=== PATIENT | male | born 1970 | race Caucasian/White ===

== ENCOUNTER 2020-05-17 18:06 | Emergency (ER) | payer MEDICARE, MEDICAID ==
[2020-05-17] MEDS ORDERED: LORazepam 2 MG/ML SDV IVPUSH ONE (19:12)
[2020-05-17] MEDS ORDERED: HYDROmorphone 0.5 MG/0.5 ML Syringe IVPUSH ONE ×2 (19:12→20:14)
[2020-05-17] MEDS ORDERED: Ketorolac 30 MG/ML SDV IVPUSH ONE (19:12)
[2020-05-17] MEDS ORDERED: Sodium Chloride 0.9% 10 ML Syringe FLUSH PRN (19:13)
[2020-05-17] MEDS ORDERED: Acetaminophen/HYDROcodone 325-5 MG Tab PO ONE (20:14)
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
[2020-05-17] MEDS ORDERED: Alum Hydrox/Mag Hydrox/Simeth 30 ML, Lidocaine 2% 15 ML PO ONE ×2 (21:24)
[2020-05-17] MEDS ORDERED: Aluminum Hydroxide/Magnesium Hydroxide/Simethicone Susp 30 ML Cup ONE (21:30)
--- NOTE | 2020-05-18 07:06 | CR ---
Lumbar spine: AP and lateral views of the lumbar spine were obtained. Comparison: No previous lumbar spine imaging. Transpedicle screws and intervertebral disc fixation noted at L3-4. Intervertebral disc fixation is seen at L4-5 and within L5-S1. Diffuse disc space narrowing is noted. Diffuse anterior osteophytes are seen. Diffuse posterior ridging is seen. Vertebral body heights are maintained. Pedicles are intact. Previous laminectomy is noted within L3-L5. No abnormal subluxation is seen. Surgical clips are noted from prior cholecystectomy. Sacroiliac joints are within normal limits. Impression: 1. Prior surgery and diffuse degenerative change. 2. Nothing acute is appreciated on 2 view lumbar spine study. Diagnostic code #2 This report was dictated in MDT
== END 2020-05-17 21:42 | disposition home or self-care (01) ==
LOC: JD.ED 18:06
DX: M54.41 Lumbago with sciatica, right side (principal); G89.29 Other chronic pain; F17.210 Nicotine dependence, cigarettes, uncomplicated
CPT/HCPCS: 72100; 96374; 96375; 96376; 99283; A9270; J1170; J1885; J2060

== ENCOUNTER 2021-07-28 17:39 | Emergency (ER) | payer MEDICARE ==
[2021-07-28] MEDS ORDERED: HYDROmorphone 0.5 MG/0.5 ML Syringe IVPUSH ONE (18:21)
[2021-07-28] MEDS ORDERED: Sodium Chloride 0.9% 1,000 ML IV STA (18:21)
[2021-07-28] MEDS ORDERED: Famotidine 20 MG/2 ML SDV IVPUSH ONE (18:26)
[2021-07-28] MEDS ORDERED: Pantoprazole 40 MG Vial IVPUSH ONE ×2 (18:26)
[2021-07-28] MEDS ORDERED: Famotidine 20 MG Tab PO ONE (18:27)
[2021-07-28] MEDS: Sodium Chloride 0.9% 10 ML Syringe FLUSH PRN ×2 (18:59→20:08)
[2021-07-28] MEDS ORDERED: Iopamidol 612 MG/ML 50 ML SDV IVPUSH ONE (19:57)
[2021-07-28] MEDS ORDERED: Iopamidol 612 MG/ML 100 ML Bottle IVPUSH ONE (19:57)
[2021-07-28] MEDS ORDERED: Sodium Chloride 0.9% 10 ML SDV FLUSH ONE (19:57)
[2021-07-28] MEDS ORDERED: Diatrizoate Meglumine/Diatrizoate Sodium 37% 120 ML Bottle PO ONE (19:57)
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
--- NOTE | 2021-07-29 07:32 | CT ---
CT abdomen and pelvis Technique: Multiple axial sections were obtained from above the dome of the diaphragm inferiorly to the pubic symphysis. Intravenous and oral contrast was utilized. Reconstructed coronal and sagittal images were obtained. Delayed images were also obtained through the bladder. Findings: Visualized lung bases shows nothing acute. Liver contains no focal parenchymal abnormality. Surgical clips are noted from prior cholecystectomy. Adrenal glands show no nodule. Pancreas is within normal limits. Kidneys show symmetric contrast enhancement with no hydronephrosis or mass. Abdominal aorta shows no aneurysm. No retroperitoneal adenopathy or mesenteric abnormalities are seen. Appendix is seen which is normal. Urine is noted within the bladder which is mildly dilated. No free fluid or inflammatory change is appreciated. Slight increased stool is noted within the colon. Delayed images show contrast within the distal ureters as well as within the bladder. Bone window settings were reviewed which show prior surgery within L3-4 and L4-5. Other scattered degenerative change is noted within the spine. Mild degenerative change is also noted within the sacroiliac joints. Slight degenerative change is noted within both hips. Impression: 1. Mildly dilated bladder with urine. 2. Other chronic findings as noted above. Nothing acute is appreciated. Diagnostic code #2 I agree with preliminary report from [facility], finalized on 07/28/21, 9:38 PM CDT, code 1
== END 2021-07-28 22:44 | disposition home or self-care (01) ==
LOC: JD.ED 17:39
DX: R10.13 Epigastric pain (principal); R33.9 Retention of urine, unspecified; R00.1 Bradycardia, unspecified; K21.9 Gastro-esophageal reflux disease without esophagitis; Z79.899 Other long term (current) drug therapy
CPT/HCPCS: 36415; 51702; 51798; 74177; 80053; 83690; 85025; 86140; 93005; 93225; 93226; 96374; 96375; 99284; A9270; C9113; J1170; J7030; Q9963; Q9967

== ENCOUNTER 2021-09-19 07:43 | Day surgery (SDC) | payer MEDICARE, MEDICAID ==
[~2021-09-19 07:43] MED LIST: Lactated Ringers 1,000 ML IV SCH; Lidocaine 1%/Sod Bicarbonate in NS 8.4% 1 ML Syringe IDERM PRN; Sodium Chloride 0.9% 10 ML Syringe FLUSH PRN
[2021-09-19] MEDS ORDERED: Lidocaine 1% 4 ML ONE (09:02)
[2021-09-19] MEDS ORDERED: Propofol 200 MG/20 ML SDV ONE ×3 (09:02→10:15)
[2021-09-19] MEDS ORDERED: fentaNYL 100 MCG/2 ML SDV ONE (09:02)
[2021-09-19] MEDS ORDERED: Midazolam 1 MG/ML 2 ML SDV ONE (09:02)
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
[2021-09-19] MEDS ORDERED: Lactated Ringers 1,000 ML ONE (10:15)
--- NOTE | 2021-09-19 11:46 | PCM.PRNOTE ---
- Free Text/Narrative Note: Date: 09/19/2021 Procedure: diagnostic esophagogastroduodenoscopy, screening colonoscopy History: medically refractory GERD, polyps on diagnostic colonoscopy 5 years ago Endoscopist: You Mukherjee MD Findings: possible short segment [place] esophagus. Fair prep, One small rectal polyp. Terminal ileum intubated. Detailed Report: The patient was taken to the endoscopy suite and placed in left lateral decubitus position. Timeout was performed and monitored anesthesia care was initiated. A bite-block was placed and the endoscope was inserted into the mouth and advanced to the duodenum with ease. Duodenum appeared normal. A sample biopsy of mucosa was obtained with cold forceps. The scope was withdrawn into the stomach. No ulcers or gross inflammatory changes were noted. A biopsy of antral mucosa was obtained with cold forceps. On retroflexion, no hiatal hernia was appreciated. The scope was withdrawn into the distal esophagus. There appeared to be some short tongues of salmon-colored mucosa extending proximally suggesting short segment Medrano's esophagus. Multiple biopsies of distal esophageal mucosa including the apparent abnormal mucosal were obtained with cold forceps. Air was suctioned from the stomach prior to withdrawal of the scope. The patient tolerated this portion of the procedure well. Next, attention was turned to colonoscopy. The anus appeared normal and digital rectal exam was unremarkable. The colonoscope was inserted and advanced all the way to the cecum. The appendiceal orifice was visualized and the terminal ileum was intubated. Prep was fair. The scope was slowly withdrawn and mucosal surfaces carefully inspected. 1 small rectal polyp grossly consistent with hyperplastic polyp was identified and removed with cold forceps. On retroflexion in the rectum, no other pathology was noted. The patient tolerated the procedure well.
== END 2021-09-19 12:08 | disposition home or self-care (01) ==
LOC: JD.SDS 07:43
PROVIDERS: ATTEND Surgery
DX: R19.7 Diarrhea, unspecified (principal); E75.5 Other lipid storage disorders; K21.9 Gastro-esophageal reflux disease without esophagitis; K31.89 Other diseases of stomach and duodenum; K31.A19 Gastric intestinal metaplasia without dysplasia, unspecified site; E78.00 Pure hypercholesterolemia, unspecified; G47.30 Sleep apnea, unspecified; Z79.899 Other long term (current) drug therapy; Z90.49 Acquired absence of other specified parts of digestive tract; Z98.890 Other specified postprocedural states
CPT/HCPCS: 43239; 45380; 88305; 88313; 88342; J2250; J2704; J3010; J7120; 00813

== ENCOUNTER 2021-10-03 11:15 | Inpatient (IN) | payer MEDICARE, MEDICAID ==
[2021-10-05] MEDS ORDERED: Sodium Chloride 0.9% 10 ML Syringe FLUSH PRN (00:01)
[2021-10-05] MEDS ORDERED: Lidocaine 1%/Sod Bicarbonate in NS 8.4% 1 ML Syringe IDERM PRN (00:01)
[2021-10-05] MEDS ORDERED: Bupivacaine 0.5% 30 ML SDV ONE ×2 (08:26→10:55)
[2021-10-05] MEDS: Lactated Ringers 1,000 ML IV SCH ×2 (08:36→16:04)
[2021-10-05] MEDS ORDERED: Lidocaine 1% 4 ML ONE (09:34)
[2021-10-05] MEDS ORDERED: Propofol 200 MG/20 ML SDV ONE (09:34)
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
[2021-10-05] MEDS ORDERED: Rocuronium 50 MG/5 ML Vial ONE ×2 (09:36→11:43)
[2021-10-05] MEDS ORDERED: Midazolam 1 MG/ML 2 ML SDV ONE (09:37)
[2021-10-05] MEDS ORDERED: fentaNYL 250 MCG/5 ML SDV ONE (09:38)
[2021-10-05] MEDS ORDERED: Vancomycin 1 GM, Vancomycin 500 MG in Sodium Chloride 0.9% 500 ML IV ONE (10:00)
[2021-10-05] MEDS ORDERED: Dexamethasone 4 MG/ML 5 ML MDV ONE (10:14)
[2021-10-05] MEDS ORDERED: fentaNYL 100 MCG/2 ML SDV IVPUSH PRN (10:45)
[2021-10-05] MEDS ORDERED: HYDROmorphone 0.5 MG/0.5 ML Syringe IVPUSH PRN (10:45)
[2021-10-05] MEDS ORDERED: Ondansetron 4 MG/2 ML SDV IVPUSH PRN (10:45)
[2021-10-05] MEDS ORDERED: Lactated Ringers 1,000 ML ONE ×2 (10:48→12:58)
[2021-10-05] MEDS ORDERED: ePHEDrine 50 MG/ML SDV ONE (11:05)
[2021-10-05] MEDS ORDERED: HYDROmorphone 0.5 MG/0.5 ML Syringe ONE ×2 (11:23→12:18)
[2021-10-05] MEDS ORDERED: fentaNYL 100 MCG/2 ML SDV ONE (12:32)
[2021-10-05] MEDS ORDERED: Ondansetron 4 MG/2 ML SDV ONE (13:03)
[2021-10-05] MEDS ORDERED: Ketorolac 30 MG/ML SDV ONE (13:07)
[2021-10-05] MEDS ORDERED: Morphine 2 MG/ML SYRINGE IVPUSH PRN (13:29)
[2021-10-05] MEDS ORDERED: Lactated Ringers 1,000 ML IV SCH (13:30)
[2021-10-05] MEDS ORDERED: Ondansetron 4 MG in Sodium Chloride 0.9% 50 ML IV PRN (13:32)
--- NOTE | 2021-10-05 13:46 | PCM.PRNOTE ---
- Free Text/Narrative Note: Date: 10/05/2021 Operation: laparoscopic Toupet fundoplication with intraoperative flexible esophagogastroscopy Indication: medically refractory acid reflux Surgeon: You Mukherjee MD Findings: Normal anatomy. Gross esophagitis noted on endoscopy. Detailed Report: The patient was taken to the operating room and placed on the table in supine position. Timeout was performed and general endotracheal anesthesia was initiated. A Romero catheter was placed, SCDs were placed and the patient was positioned in low lithotomy. The abdomen was prepped and draped in usual sterile fashion. A Veress needle was placed in the left upper quadrant in order to establish pneumoperitoneum. Once pressure reached 15 mmHg, air was aspirated just superior and lateral on the left side to the umbilicus. A bladed 12 mm trocar was inserted at this site and a 10 mm 30 degree laparoscope was inserted. There was no apparent injury from Veress needle placement and the needle was removed under laparoscopic visualization. Additional ports were placed under vision with the laparoscope. First, a 5 mm port was placed at the left upper quadrant laterally just at the subcostal line at the level of the omentum anteriorly. A 12 mm bladed trocar was inserted at the right upper quadrant along the midclavicular line for the surgeon's right hand. An additional 12 mm trocar was inserted at the right lateral abdomen for placement of the liver retractor. The liver retractor was set up and used to elevate the left lobe of the liver anteriorly exposing the hiatus. Finally, a 5 mm trocar was placed at the right upper quadrant along the midclavicular line for the surgeon's left hand. The patient was positioned in reverse Trendelenburg and the pars flaccida was identified. This was divided using the [place] LigaSure and the right pillar of the leatha was identified. Careful blunt dissection ensued trying to separate the crural muscle from the esophagus, but there was some noted inflammatory change involving the left lobe of the liver and anatomy was not quite clear. Prior to proceeding with dissection, diagnostic es ophagogastroscopy was performed in order to help better delineate the esophagus as it lay relative to the crura. Esophagitis was noted and there was some semisolid gastric contents. The scope was withdrawn after suctioning air from the stomach. Dissection then commenced and the esophagus was apparent. The phrenoesophageal ligament was divided circumferentially working from the medial aspect to the anterior to the lateral aspect. Next, the midportion of the greater curve of the stomach was grasped and omentum was taken off the greater curve using the [place] LigaSure. This dissection was carried up toward the angle of Hiss. Short gastric vessels were divided with the [place] LigaSure. The stomach was reflected medially and some of the posterior attachments were divided using the [place] LigaSure. This line of dissection met up with previous circumferential dissection of the gastroesophageal junction. Next, a grasper was passed posterior to the distal esophagus and a [place] drain was placed circumferentially around the GE junction. This was used for retraction for the remainder of the case. Dissection was carried up into the mediastinum, esophageal attachments well up into the chest. With good mobilization, a few centimeters of esophagus rested within the abdomen tension. There was no significant hiatal hernia noted, and after completing dissection, t he posterior crura were closed reapproximating the hiatus using a single 0 Ethibond suture with pledgets. The initial stitch seemed to impinge on the esophagus slightly, so the suture was removed and redone. The hiatus was closed just around the esophagus without undue tightness. There was some bleeding from the diaphragmatic vessel in the medial aspect of the leatha, and this was controlled with placement of 2 clips. Hemostasis was satisfactory. The fundus of the stomach was passed posteriorly in order to create a Toupet fundoplication. A shoeshine maneuver was performed in order to ensure proper placement of the fundus for fundoplication. The medial aspect of the partial fundoplication was performed first. Three 2-0 Ethibond sutures were used to fix the medial aspect of the fundoplication to the anterior esophagus. Next the lateral aspect was performed in identical fashion using three 2-0 Ethibond sutures. The dissection field was suctioned dry. The patient was then leveled out and 12 mm ports were closed under laparoscopic visualization with 0 Vicryl placed using laparoscopic suture passer. 5 mm ports were removed under laparoscopic visualization and hemostasis was satisfactory. Larger ports were then tied down to the level of fascia and all incisions were closed with running subcuticular Vicryl suture. Wounds were dressed with Dermabond. A total of 30 cc 0.5% Marcaine was used for local anesthetic throughout the case. The patient tolerated the procedure well.
--- NOTE | 2021-10-05 13:58 | PCM.POSTAN ---
POST ANESTHESIA ASSESSMENT - MENTAL STATUS Mental Status: Alert, Oriented - VITAL SIGNS Vital Signs: Last Vital Signs Temp 36.4 C 10/05/21 13:50 Pulse 76 10/05/21 13:50 Resp 10 L 10/05/21 13:50 BP 103/72 10/05/21 13:50 Pulse Ox 94 L 10/05/21 13:50 - RESPIRATORY Respiratory Status: Respiratory Rate WNL, Airway Patent, O2 Saturation Stable, Supplemental Oxygen - CARDIOVASCULAR CV Status: Pulse Rate WNL, Blood Pressure Stable - GASTROINTESTINAL GI Status: No Symptoms - PAIN Pain Score: 0 - POST OP HYDRATION Hydration Status: Adequate & Stable
[2021-10-05] MEDS: Ondansetron 4 MG/2 ML SDV IVPUSH PRN (16:30)
[2021-10-05] MEDS: Tamsulosin 0.4 MG Cap.ER PO SCH (17:03)
[2021-10-05] MEDS: Acetaminophen 325 MG Tab PO SCH ×2 (17:04→21:23)
[2021-10-05] MEDS: Heparin Sodium 5,000 Units/ML Vial SUBCUT SCH ×2 (17:05→21:23)
[2021-10-05] MEDS ORDERED: Benztropine 1 MG Tab PO SCH (21:00)
[2021-10-05] MEDS ORDERED: Haloperidol 5 MG Tab PO SCH (21:00)
[2021-10-05] MEDS ORDERED: Topiramate 25 MG Tab PO SCH (21:00)
[2021-10-05] MEDS ORDERED: risperiDONE 1 MG Tab PO SCH (21:00)
[2021-10-05] MEDS ORDERED: PARoxetine 20 MG Tab PO SCH (21:00)
[2021-10-05] MEDS ORDERED: HYDROXYZINE PAMOATE 25 MG PO SCH (21:00)
[2021-10-05] MEDS: Topiramate 100 MG Tab PO SCH (21:26)
[2021-10-05] MEDS: oxyCODONE 5 MG Tab PO PRN (21:31)
[2021-10-06] MEDS: Ondansetron 4 MG/2 ML SDV IVPUSH PRN ×3 (01:26→14:31)
[2021-10-06] MEDS: oxyCODONE 5 MG Tab PO PRN ×5 (01:26→16:47)
[2021-10-06] MEDS: Acetaminophen 325 MG Tab PO SCH ×2 (05:27→14:32)
[2021-10-06] MEDS: Heparin Sodium 5,000 Units/ML Vial SUBCUT SCH ×2 (05:27→14:31)
--- NOTE | 2021-10-06 08:02 | PCM48HPAN ---
Post Anesthesia Note - EVALUATION WITHIN 48HRS OF ANESTHETIC Vital Signs in Normal Range: Yes Patient Participated in Evaluation: Yes Respiratory Function Stable: Yes Airway Patent: Yes Cardiovascular Function Stable: Yes Hydration Status Stable: Yes Pain Control Satisfactory: Yes (informed nurse that he would like pain meds now) Nausea and Vomiting Control Satisfactory: Yes Mental Status Recovered: Yes Vital Signs: Last Vital Signs Temp 98.6 F 10/06/21 04:54 Pulse 70 10/06/21 04:54 Resp 14 10/06/21 04:54 BP 112/67 10/06/21 04:54 Pulse Ox 92 L 10/06/21 04:54 - COMMENTS/OBSERVATIONS Free Text/Narrative:: pleased with the anesthesia- no complaints- little pain now
[2021-10-06] MEDS: Tamsulosin 0.4 MG Cap.ER PO SCH (08:37)
[2021-10-06] MEDS: Topiramate 100 MG Tab PO SCH (08:38)
[2021-10-06] MEDS ORDERED: risperiDONE 1 MG Tab PO SCH (09:00)
[2021-10-06] MEDS ORDERED: HYDROXYZINE PAMOATE 25 MG PO SCH (09:00)
[2021-10-06] MEDS ORDERED: PARoxetine 20 MG Tab PO SCH (09:00)
[2021-10-06] MEDS: Simethicone 80 MG Tab.Chew PO PRN ×2 (09:28→14:32)
--- NOTE | 2021-10-06 15:08 | PCM.DCSUM1 ---
Discharge Summary - Hospital Course Free Text/Narrative:: Mr. Monge is a 51 yo man with medically refractory reflux disease who underwent elective laparoscopic partial fundoplication on 10/05/2021. The operation was completed without complication and the patient was kept in the hospital for 24 hours following the operation. He was able to tolerate a full liquid diet. Pain was manageable with oral analgesics. The patient has a history of urinary retention, related in part to chronic use of anticholinergic medications. Although bladder scan showed nearly 1 L of urine in the bladder a few hours after chen catheter removal, the patient was able to void several hundred cc's at a time after chen removal. He was deemed fit for discharge to home on POD 1 after reviewing new medications and temporary restricted diet. A paper handout to help with post-fundoplication diet was provided for the patient. Diagnosis: Stroke: No - Discharge Data Discharge Date: 10/06/21 Discharge Disposition: Home, Self-Care 01 Condition: Good - Referral to Home Health Primary Care Physician: Ita Mansfield NP - Patient Summary/Data Operative Procedure(s) Performed: laparoscopic partial fundoplication with intraoperative esophagogastroscopy - Patient Instructions Diet: Full Liquid Diet Activity: As Tolerated, No Lifting Over 10 Pounds Showering/Bathing: May Shower Wound/Incision Care: Keep Operative Site/Wound Site Clean and Dry Notify Provider of: Fever, Increased Pain, Swelling and Redness, Drainage, Nausea and/or Vomiting - Discharge Plan *PRESCRIPTION DRUG MONITORING PROGRAM REVIEWED*: Not Applicable *COPY OF PRESCRIPTION DRUG MONITORING REPORT IN PATIENT CAROLINE: Not Applicable Prescriptions/Med Rec: oxyCODONE 5 mg PO Q4H PRN #20 tab PRN Reason: Pain Promethazine [Phenergan] 12.5 mg PO Q4H PRN #20 tab PRN Reason: Nausea Home Medications: Home Meds Dicyclomine [Bentyl] 20 mg PO Q8H PRN #18 tab 07/28/21 [Rx] Tamsulosin [Tamsulosin 24 Hr] 0.4 mg PO DAILY #30 cap.er 07/28/21 [Rx] risperiDONE [Risperidone] 4 mg PO BEDTIME 07/28/21 [History] Benztropine [Cogentin] 2 mg PO BEDTIME 09/18/21 [History] LORazepam [Lorazepam] 1 mg PO ASDIRECTED PRN 09/18/21 [History] Meloxicam 7.5 mg PO BID 09/18/21 [History] Nicotine [Nicotine Patch] 21 mg TOP ASDIRECTED 09/18/21 [History] Omeprazole 40 mg PO DAILY 09/18/21 [History] Topiramate [Topamax] 100 mg PO BID 09/18/21 [History] haloperidoL [Haldol] 5 mg PO BEDTIME 09/18/21 [History] PARoxetine HCL [Paroxetine HCl] 30 mg PO BEDTIME 10/05/21 [History] buPROPion [buPROPion XL] 150 mg PO DAILY 10/05/21 [History] hydrOXYzine pamoate [Hydroxyzine Pamoate] 25 mg PO DAILY 10/05/21 [History] hydrOXYzine pamoate [Hydroxyzine Pamoate] 100 mg PO BEDTIME 10/05/21 [History] Promethazine [Phenergan] 12.5 mg PO Q4H PRN #20 tab 10/06/21 [Rx] oxyCODONE 5 mg PO Q4H PRN #20 tab 10/06/21 [Rx] Oxygen Therapy Mode: Room Air Patient Handouts: Toupet Fundoplication, Care After, Toupet Fundoplication Referrals: You Mukherjee MD [Physician] - (Follow up post-op appointment on October 20, 2021 at 12:30pm. Please check in for appointment at 12:10pm. ) - Discharge Summary/Plan Comment DC Time >30 min.: Yes Total # of Minutes for Discharge Time: 45 Discharge Summary/Plan Comment: Follow up in clinic in two weeks for postop check. - Patient Data Vitals - Most Recent: Last Vital Signs Temp 37.3 C 10/06/21 14:20 Pulse 76 10/06/21 14:20 Resp 20 10/06/21 14:20 BP 127/86 10/06/21 14:20 Pulse Ox 91 L 10/06/21 14:20 Weight - Most Recent: 100 kg I&O - Last 24 hours: Intake & Output 10/06/21 10/06/21 10/06/21 06:59 14:59 22:59 Intake Total 1400 800 Output Total 1150 300 Balance 250 500 Lab Results - Last 24 hrs: Laboratory Results - last 24 hr 12/03/21 12/03/21 Range/Units 04:41 04:41 WBC 8.82 (4.23-9.07) K/mm3 RBC 4.71 (4.63-6.08) M/mm3 Hgb 13.3 L (13.7-17.5) gm/dl Hct 40.3 (40.1-51.0) % MCV 85.6 (79.0-92.2) fl MCH 28.2 (25.7-32.2) pg MCHC 33.0 (32.2-35.5) g/dl RDW Std Deviation 44.7 H (35.1-43.9) fL Plt Count 199 (163-337) K/mm3 MPV 9.9 (9.4-12.3) fl Neut % (Auto) 76.4 H (34.0-67.9) % Lymph % (Auto) 14.1 L (21.8-53.1) % [place] % (Auto) 9.2 (5.3-12.2) % Eos % (Auto) 0.1 L (0.8-7.0) Baso % (Auto) 0.1 (0.1-1.2) % Neut # (Auto) 6.74 H (1.78-5.38) K/mm3 Lymph # (Auto) 1.24 L (1.32-3.57) K/mm3 [place] # (Auto) 0.81 (0.30-0.82) K/mm3 Eos # (Auto) 0.01 L (0.04-0.54) K/mm3 Baso # (Auto) 0.01 (0.01-0.08) K/mm3 Sodium 144 (136-145) mEq/L Potassium 4.3 (3.5-5.1) mEq/L Chloride 110 H (98-107) mEq/L Carbon Dioxide 20 L (21-32) mEq/L Anion Gap 18.3 H (5-15) BUN 13 (7-18) mg/dL Creatinine 1.2 (0.7-1.3) mg/dL Est Cr Clr Drug Dosing 76.04 mL/min Estimated GFR (MDRD) > 60 (>60) mL/min BUN/Creatinine Ratio 10.8 L (14-18) Glucose 124 H (70-99) mg/dL Calcium 8.2 L (8.5-10.1) mg/dL Med Orders - Current: Current Medications Acetaminophen (Acetaminophen 325 Mg Tab) 975 mg PO Q8H [facility] Last Admin: 10/06/21 14:32 Dose: 975 mg Documented by: Benztropine Mesylate (Benztropine 1 Mg Tab) 2 mg PO BEDTIME [facility] Last Admin: 10/05/21 21:26 Dose: 2 mg Documented by: Haloperidol (Haloperidol 5 Mg Tab) 5 mg PO BEDTIME [facility] Last Admin: 10/05/21 21:27 Dose: 5 mg Documented by: Heparin Sodium (Porcine) (Heparin Sodium 5,000 Units/Ml Vial) 5,000 units SUBCUT Q8H [facility] Last Admin: 10/06/21 14:31 Dose: 5,000 units Documented by: Morphine Sulfate (Morphine 2 Mg/Ml Syringe) 1 mg IVPUSH Q4H PRN PRN Reason: Pain (severe 7-10) Ondansetron HCl (Ondansetron 4 Mg/2 Ml Sdv) 4 mg IVPUSH Q6H PRN PRN Reason: NAUSEA Last Admin: 10/06/21 14:31 Dose: 4 mg Documented by: Oxycodone HCl (Oxycodone 5 Mg Tab) 5 mg PO Q4H PRN PRN Reason: Pain (moderate 4-6) Last Admin: 10/06/21 12:38 Dose: 5 mg Documented by: Paroxetine HCl (Paroxetine 10 Mg Tab) 30 mg PO BEDTIME [facility] Last Admin: 10/05/21 21:26 Dose: 30 mg Documented by: Hydroxyzine Pamoate 25 Mg Caps *Pt Own Med* 0 each PO DAILY [facility] Last Admin: 10/06/21 08:38 Dose: 1 each Documented by: Hydroxyzine Pamoate 25 Mg Caps *Pt Own Med* 0 each PO BEDTIME [facility] Last Admin: 10/05/21 21:24 Dose: 4 each Documented by: Risperidone (Risperidone 1 Mg Tab) 4 mg PO BEDTIME [facility] Last Admin: 10/05/21 21:27 Dose: 4 mg Documented by: Simethicone (Simethicone 80 Mg Tab.Chew) 80 mg PO Q6H PRN PRN Reason: Gas Last Admin: 10/06/21 14:32 Dose: 80 mg Documented by: Tamsulosin HCl (Tamsulosin 0.4 Mg Cap.Er) 0.4 mg PO DAILY [facility] Last Admin: 10/06/21 08:37 Dose: 0.4 mg Documented by: Topiramate (Topiramate 100 Mg Tab) 100 mg PO BID [facility] Last Admin: 10/06/21 08:38 Dose: 100 mg Documented by: Discontinued Medications Bupivacaine HCl (Bupivacaine 0.5% 30 Ml Sdv) Confirm Administered Dose 30 ml .ROUTE .STK-MED ONE Stop: 10/05/21 08:27 Last Admin: 10/05/21 15:08 Dose: 36 ml Documented by: Bupivacaine HCl (Bupivacaine 0.5% 30 Ml Sdv) Confirm Administered Dose 30 ml .ROUTE .STK-MED ONE Stop: 10/05/21 10:56 Dexamethasone (Dexamethasone 4 Mg/Ml 5 Ml Mdv) Confirm Administered Dose 20 mg .ROUTE .STK-MED ONE Stop: 10/05/21 10:15 Ephedrine Sulfate (Ephedrine 50 Mg/Ml Sdv) Confirm Administered Dose 50 mg .ROUTE .STK-MED ONE Stop: 10/05/21 11:06 Fentanyl (Fentanyl 250 Mcg/5 Ml Sdv) Confirm Administered Dose 250 mcg .ROUTE .STK-MED ONE Stop: 10/05/21 09:39 Fentanyl (Fentanyl 100 Mcg/2 Ml Sdv) 50 mcg IVPUSH Q5M PRN PRN Reason: Pain Stop: 10/05/21 23:00 Fentanyl (Fentanyl 100 Mcg/2 Ml Sdv) Confirm Administered Dose 100 mcg .ROUTE .STK-MED ONE Stop: 10/05/21 12:33 Glycopyrrolate (Glycopyrrolate 0.2 Mg/Ml 2 Ml Syringe) Confirm Administered Dose 0.4 mg .ROUTE .STK-MED ONE Stop: 10/05/21 10:57 Glycopyrrolate (Glycopyrrolate 0.2 Mg/Ml 2 Ml Syringe) Confirm Administered Dose 0.4 mg .ROUTE .STK-MED ONE Stop: 10/05/21 13:10 Glycopyrrolate (Glycopyrrolate 0.2 Mg/Ml 2 Ml Syringe) Confirm Administered Dose 0.4 mg .ROUTE .STK-MED ONE Stop: 10/05/21 14:03 Hydromorphone HCl (Hydromorphone 0.5 Mg/0.5 Ml Syringe) 0.5 mg IVPUSH Q1H PRN PRN Reason: Pain Stop: 10/05/21 23:00 Last Admin: 10/05/21 19:33 Dose: 0.5 mg Documented by: Hydromorphone HCl (Hydromorphone 0.5 Mg/0.5 Ml Syringe) Confirm Administered Dose 0.5 mg .ROUTE .STK-MED ONE Stop: 10/05/21 11:24 Hydromorphone HCl (Hydromorphone 0.5 Mg/0.5 Ml Syringe) Confirm Administered Dose 0.5 mg .ROUTE .STK-MED ONE Stop: 10/05/21 12:19 Lactated Ringer's (Ringers, Lactated) 1,000 mls @ 125 mls/hr IV ASDIRECTED [facility] Stop: 10/03/21 23:00 Lactated Ringer's (Ringers, Lactated) 1,000 mls @ 125 mls/hr IV ASDIRECTED [facility] Stop: 10/05/21 23:00 Last Admin: 10/05/21 16:04 Dose: 125 mls/hr Documented by: Lidocaine HCl (Xylocaine-Mpf 1%) Confirm Administered Dose 4 mls @ as directed .ROUTE .STK-MED ONE Stop: 10/05/21 09:35 Vancomycin HCl 1 gm/Vancomycin HCl 500 mg/ Sodium Chloride 500 mls @ 250 mls/hr IV ONETIME ONE Stop: 10/05/21 11:59 Last Admin: 10/05/21 17:05 Dose: Not Given Documented by: Lactated Ringer's (Ringers, Lactated) Confirm Administered Dose 1,000 mls @ as directed .ROUTE .K-MED ONE Stop: 10/05/21 10:49 Lactated Ringer's (Ringers, Lactated) Confirm Administered Dose 1,000 mls @ as directed .ROUTE .STK-MED ONE Stop: 10/05/21 12:59 Lactated Ringer's (Ringers, Lactated) 1,000 mls @ 100 mls/hr IV ASDIRECTED [facility] Ondansetron HCl 4 mg/ Sodium (Chloride) 52 mls @ 100 mls/hr IV Q6H PRN PRN Reason: Nausea Ketorolac Tromethamine (Ketorolac 30 Mg/Ml Sdv) Confirm Administered Dose 30 mg .ROUTE .STK-MED ONE Stop: 10/05/21 13:08 Lidocaine/Sodium Bicarbonate (Lidocaine 1%/Sod Bicarbonate In Ns 8.4% 1 Ml Syringe) 0.25 ml IDERM ONETIME PRN PRN Reason: Prior to IV Start Stop: 10/03/21 18:00 Lidocaine/Sodium Bicarbonate (Lidocaine 1%/Sod Bicarbonate In Ns 8.4% 1 Ml Syringe) 0.25 ml IDERM ONETIME PRN PRN Reason: Prior to IV Start Stop: 10/05/21 23:00 Midazolam HCl (Midazolam 1 Mg/Ml 2 Ml Sdv) Confirm Administered Dose 2 mg .ROUTE .STK-MED ONE Stop: 10/05/21 09:38 Neostigmine Methylsulfate (Neostigmine Methylsulfate 5 Mg/5 Ml Syringe) Confirm Administered Dose 5 mg .ROUTE .STK-MED ONE Stop: 10/05/21 13:10 Ondansetron HCl (Ondansetron 4 Mg/2 Ml Sdv) 4 mg IVPUSH ONETIME PRN PRN Reason: Nausea/Vomiting Stop: 10/05/21 23:00 Ondansetron HCl (Ondansetron 4 Mg/2 Ml Sdv) Confirm Administered Dose 4 mg .ROUTE .STK-MED ONE Stop: 10/05/21 13:04 Paroxetine HCl (Paroxetine 20 Mg Tab) 20 mg PO DAILY [facility] Paroxetine HCl (Paroxetine 20 Mg Tab) 20 mg PO BEDTIME [facility] Propofol (Propofol 200 Mg/20 Ml Sdv) Confirm Administered Dose 200 mg .ROUTE .STK-MED ONE Stop: 10/05/21 09:35 Risperidone (Risperidone 1 Mg Tab) 4 mg PO DAILY [facility] Rocuronium [place] (Rocuronium 50 Mg/5 Ml Vial) Confirm Administered Dose 50 mg .ROUTE .STK-MED ONE Stop: 10/05/21 09:37 Rocuronium [place] (Rocuronium 50 Mg/5 Ml Vial) Confirm Administered Dose 50 mg .ROUTE .STK-MED ONE Stop: 10/05/21 11:44 Sodium Chloride (Sodium Chloride 0.9% 10 Ml Syringe) 10 ml FLUSH ASDIRECTED PRN PRN Reason: Keep Vein Open Stop: 10/03/21 18:00 Sodium Chloride (Sodium Chloride 0.9% 10 Ml Syringe) 10 ml FLUSH ASDIRECTED PRN PRN Reason: Keep Vein Open Stop: 10/05/21 23:00 Topiramate (Topiramate 25 Mg Tab) 50 mg PO BID [facility]
== END 2021-10-06 17:25 | disposition home or self-care (01) | DRG 328 ==
LOC: JD.OB 10-05 07:16 → JD.MS 10-06 17:20 → UNDODISIN 10-06 17:25
PROVIDERS: ADMIT Surgery; ATTEND Surgery
PROC: 0DV44ZZ Restriction of Esophagogastric Junction, Percutaneous Endoscopic Approach (ICD-10-PCS; principal; 2021-10-05)
DX: K21.00 Gastro-esophageal reflux disease with esophagitis, without bleeding (principal)
CPT/HCPCS: 00790; 36415; 51798; 80048; 80053; 85025; A9270-GY; J1100; J1170; J1644; J1885; J2250; J2405; J2704; J2710; J3010; J3370; J3490; J7040; J7120

== ENCOUNTER 2022-07-13 14:58 | Emergency (ER) | payer MEDICARE, MEDICAID ==
[2022-07-13] MEDS ORDERED: Metoclopramide 10 MG/2 ML SDV IVPUSH ONE (16:03)
[2022-07-13] MEDS ORDERED: LORazepam 2 MG/ML SDV IVPUSH ONE (16:03)
[2022-07-13] MEDS ORDERED: Sodium Chloride 0.9% 10 ML Syringe FLUSH PRN (16:03)
[2022-07-13 17:38] LABS: ESTIMATED GFR 103 mL/min (>60)
== END 2022-07-13 20:00 | disposition home or self-care (01) ==
LOC: JD.ED 14:58
DX: U07.1 COVID-19 (principal); E78.00 Pure hypercholesterolemia, unspecified; K21.9 Gastro-esophageal reflux disease without esophagitis; F17.210 Nicotine dependence, cigarettes, uncomplicated; Z79.899 Other long term (current) drug therapy
CPT/HCPCS: 36415; 80053; 81003; 83735; 85025; 86140; 93005; 96374; 96375; 99284; J2060; J2765; U0002